=== PATIENT | female | born 1990 | race Two or more races ===

== ENCOUNTER 2025-06-05 12:08 | Inpatient (IN) | payer OTHER ==
[~2025-06-05] VITALS: Ht 160 cm; Wt 68.0 kg
[2025-06-05] VITALS (10 sets, daily range): BP systolic 115–149; BP diastolic 65–86
[2025-06-05 13:40] LABS: BASO % 0.2 % (0.1-1.2); EOS # 0.05 (0.04-0.54); EOS % 0.4 % (0.7-7.0); LYMPH # 1.57 (1.18-3.74); LYMPH % 14.0 % (19.3-53.1); MEAN PLATELET VOLUME 12.30 fl (9.4-12.4); MONO # 0.86 (0.24-0.82); MONO % 7.7 % (4.7-12.5); NEUT # 8.70 (1.56-6.13); NEUT % 77.3 % (34.0-71.1); RED CELL DISTRIBUTION WIDTH 14.7 % (11.6-14.4)
[2025-06-05 13:46] LABS: URINE APPEARANCE Clear; URINE BILIRRUBIN Negative (NEGATIVE); URINE BLOOD Negative; URINE COLOR Yellow; URINE GLUCOSE Negative (NEGATIVE); URINE KETONE 15 (NEGATIVE); URINE LEUKOCYTE Negative; URINE NITRATE Negative; URINE PROTEIN Negative (NEGATIVE); URINE UROBILINOGEN 1.0 E.U./dl
[2025-06-05 13:49] LABS: URINE BACTERIA 57.6 uL (0.0-1933); URINE EPITHELIAL CELLS 8.3 uL (0.0-38.8); URINE RBC 19.9 uL (0.0-20.8); URINE WBC 11.8 uL (0.0-23.2)
[2025-06-05 13:59] LABS: INR 0.97
[2025-06-05 14:23] LABS: URINE CAST 0.00 uL (0.0-1.40)
[2025-06-05] MEDS ORDERED: AMPICILLIN SODIUM 2,000 MG VIAL IV ONE (14:40)
[2025-06-05 14:45] LABS: ALT/SGPT 23.0 U/L (12-78); AST/SGOT 21.0 U/L (15-37); BILIRUBIN TOTAL 0.29 mg/dL (0.3-1.2); BUN CREA RATIO 13.0 (7.0-25.0); CREATININE SERUM 0.55 mg/dL (0.55-1.02); GFR 127.29; GLOBULINA 3.7 G/DL (2.4-3.5); GLUCOSE FASTING 73.0 mg/dL (65-100); OSMOLALITY SERUM 278.0 MOSM/KG (275-295)
[2025-06-05] MEDS ORDERED: OXYTOCIN 500 ML IV SCH (15:45)
[2025-06-05] MEDS ORDERED: PRENATABS RX T1 EACH PO (15:58)
[2025-06-05] MEDS ORDERED: AMPICILLIN SODIUM 1,000 MG VIAL IV SCH (16:00)
[2025-06-05] MEDS ORDERED: OMEGA-31000 MG (16:17)
[2025-06-05] MEDS ORDERED: IRON325 MG (16:17)
[2025-06-05] MEDS ORDERED: RINGERS SOLUTION,LACTATED 1,000 ML IV SCH (16:30)
[2025-06-05] MEDS ORDERED: LIDOCAINE HCL 1% 10ML VIAL IJ ONE (18:45)
[2025-06-05] MEDS ORDERED: OXYTOCIN 1,000 ML IV ONE (19:15)
[2025-06-05] MEDS ORDERED: CHLORHEXIDINE GLUCONATE 120 ML BOTTLE TOP SCH (19:15)
[2025-06-05] MEDS ORDERED: CEFAZOLIN SODIUM 1,000 MG VIAL IV ONE (19:15)
[2025-06-05] MEDS ORDERED: ERYTHROMYCIN BASE OPHT 1GM EACH TUBE OP ONE (20:00)
[2025-06-06] VITALS: BP 104/62
[2025-06-06 07:33] LABS: BASO % 0.2 % (0.1-1.2); EOS # 0.01 (0.04-0.54); EOS % 0.1 % (0.7-7.0); LYMPH # 1.50 (1.18-3.74); LYMPH % 8.9 % (19.3-53.1); MEAN PLATELET VOLUME 12.40 fl (9.4-12.4); MONO # 1.32 (0.24-0.82); MONO % 7.8 % (4.7-12.5); NEUT # 13.97 (1.56-6.13); NEUT % 82.6 % (34.0-71.1); RED CELL DISTRIBUTION WIDTH 14.7 % (11.6-14.4)
[2025-06-06 08:19] VITALS: BP 115/72
[2025-06-06] MEDS ORDERED: DOCUSATE SODIUM 100MG CAP PO SCH (09:00)
[2025-06-06] MEDS ORDERED: PNV,CALCIUM 72/IRON/FOLIC ACID 1 TAB TABLET PO SCH (09:00)
[2025-06-06] MEDS ORDERED: BENZOCAINE/MENTHOL 90 ML BOTTLE TOP SCH (13:00)
[2025-06-06 16:00] VITALS: BP 124/77
[2025-06-07] VITALS: BP 109/65
[2025-06-07 09:36] VITALS: BP 128/81
== END 2025-06-07 13:10 | disposition home or self-care (01) | DRG 807 ==
LOC: LDR 12:08 → OB/GYN 21:40
PROVIDERS: ADMIT Obstetrics & Gynecology Gynecology; ATTEND Obstetrics & Gynecology Gynecology
PROC: 10D17Z9 Manual Extraction of Products of Conception, Retained, Via Natural or Artificial Opening (ICD-10-PCS; principal; 2025-06-05)
PROC: 10D07Z6 Extraction of Products of Conception, Vacuum, Via Natural or Artificial Opening (ICD-10-PCS; 2025-06-05)
PROC: 0KQM0ZZ Repair Perineum Muscle, Open Approach (ICD-10-PCS; 2025-06-05)
PROC: 4A1HXCZ Monitoring of Products of Conception, Cardiac Rate, External Approach (ICD-10-PCS; 2025-06-05)
PROC: BU4CZZZ Ultrasonography of Uterus and Ovaries (ICD-10-PCS; 2025-06-06)
DX: O70.1 Second degree perineal laceration during delivery (principal); O73.0 Retained placenta without hemorrhage; Z37.0 Single live birth; O69.81X0 Labor and delivery complicated by cord around neck, without compression, not applicable or unspecified; Z3A.37 37 weeks gestation of pregnancy

== ENCOUNTER 2025-07-19 10:00 | Day surgery (SDC) | payer OTHER ==
[2025-07-19 08:44] LABS: BASO % 0.8 % (0.1-1.2); EOS # 0.18 (0.04-0.54); EOS % 2.8 % (0.7-7.0); LYMPH # 1.73 (1.18-3.74); LYMPH % 27.2 % (19.3-53.1); MEAN PLATELET VOLUME 10.60 fl (9.4-12.4); MONO # 0.48 (0.24-0.82); MONO % 7.5 % (4.7-12.5); NEUT # 3.91 (1.56-6.13); NEUT % 61.5 % (34.0-71.1); RED CELL DISTRIBUTION WIDTH 14.9 % (11.6-14.4)
[2025-07-19 08:53] LABS: URINE APPEARANCE Cloudy; URINE BILIRRUBIN Negative (NEGATIVE); URINE BLOOD Large; URINE COLOR Yellow; URINE GLUCOSE Negative (NEGATIVE); URINE KETONE Trace (NEGATIVE); URINE LEUKOCYTE Large; URINE NITRATE Negative; URINE PROTEIN 30 (NEGATIVE); URINE UROBILINOGEN 0.2 E.U./dl
[2025-07-19 08:54] LABS: URINE BACTERIA 347.9 uL (0.0-1933); URINE EPITHELIAL CELLS 29.6 uL (0.0-38.8); URINE RBC 2721.6 uL (0.0-20.8); URINE WBC 1223.0 uL (0.0-23.2)
[2025-07-19 08:58] LABS: COVID-19 AG NEGATIVE (NEGATIVE)
[2025-07-19 09:20] LABS: ALT/SGPT 14.0 U/L (12-78); AST/SGOT 11.0 U/L (15-37); BILIRUBIN TOTAL 0.43 mg/dL (0.3-1.2); BUN CREA RATIO 20.0 (7.0-25.0); CREATININE SERUM 0.8 mg/dL (0.55-1.02); GFR 82.61; GLOBULINA 3.5 G/DL (2.4-3.5); GLUCOSE FASTING 83.0 mg/dL (65-100); OSMOLALITY SERUM 283.0 MOSM/KG (275-295)
[2025-07-19 09:43] LABS: INR 1.01
[2025-07-19 09:47] LABS: URINE CAST 0.00 uL (0.0-1.40)
[2025-07-19 09:48] LABS: URINE CRYSTALS FEW /HPF
[~2025-07-19 10:00] MED LIST: IRON325 MG; OMEGA-31000 MG; PRENATABS RX T1 EACH PO
[2025-07-19] MEDS ORDERED: CEFAZOLIN SODIUM 1,000 MG VIAL IV ONE (13:30)
[2025-07-19] MEDS ORDERED: POVIDONE-IODINE 118 ML BOTT TOP ONE (13:30)
[2025-07-19] MEDS ORDERED: PROMETHAZINE HCL 50 MG/ML AMPUL IM ONE (14:00)
[2025-07-19] MEDS ORDERED: MORPHINE SULFATE 4 MG/ML VIAL IV PRN (14:00)
== END 2025-07-19 18:35 | disposition home or self-care (01) ==
LOC: EDBD → CIR.AMB 10:00
PROVIDERS: ATTEND Obstetrics & Gynecology Gynecology
DX: O72.2 Delayed and secondary postpartum hemorrhage (principal); O72.3 Postpartum coagulation defects; N93.8 Other specified abnormal uterine and vaginal bleeding